=== PATIENT | male | born 1955 | race Asian ===

== ENCOUNTER → 2018-06-20 | Day surgery (SDC) | payer OTHER ==
[2018-06-14 13:49] VITALS: BMI 26.6
[~2018-06-20] MED LIST: PROPOFOL 20 ML ONE
[2018-06-20 09:00] VITALS: TEMP 98
[2018-06-20 09:32] VITALS: BP 118/63; PULSE 76
== END | disposition home or self-care (01) ==
LOC: FASU-ENDO 07:23
PROVIDERS: ATTEND Internal Medicine Gastroenterology
PROC: 0DJD8ZZ Inspection of Lower Intestinal Tract, Via Natural or Artificial Opening Endoscopic (ICD-10-PCS; principal; 2018-06-20 08:00)
DX: Z12.11 Encounter for screening for malignant neoplasm of colon (principal)